=== PATIENT | male | born 1955 | race American Indian/Alaskan Native ===

== ENCOUNTER 2017-06-15 01:24 | Emergency (ER) | payer OTHER ==
[2017-06-15 01:45] VITALS: RESP 18; TEMP 98.7
--- NOTE | 2017-06-15 01:54 | ED PDOC ---
Arrival/HPI - General Historian: Patient - History of Present Illness Time/Duration: < week Context: Home <Kelly Savage - Last Filed: 06/15/17 15:43> <Hilario Gamez - Last Filed: 06/15/17 20:13> - General Chief Complaint: Cough, Cold, Congestion Time Seen by Provider: 06/15/17 01:40 - History of Present Illness Narrative History of Present Illness (Text): 06/15/17 01:50 This 61 yo male with pmh asthma, prostate Ca., presents to this ED c/o cough x 4 days. Patient also noted b/l legs "feeling cramping" for couple of days. Denies hemoptysis, sob, fever, abdominal pain, dizziness, or abnormal gait. (Kelly Savage) Past Medical History - Provider Review Nursing Documentation Reviewed: Yes - Cardiac Hx Cardiac Disorders: No - Pulmonary Hx Asthma: Yes - Neurological Hx Neurological Disorder: No - HEENT Hx HEENT Disorder: No - Renal Hx Renal Disorder: No - Endocrine/Metabolic Hx Endocrine Disorders: No - Hematological/Oncological Hx Cancer: Yes (PROSTATE) - Integumentary Hx Dermatological Disorder: No - Musculoskeletal/Rheumatological Hx Arthritis: Yes (BACK) - Gastrointestinal Hx Gastrointestinal Disorders: No - Genitourinary/Gynecological Hx Genitourinary Disorders: Yes Hx Prostate Cancer: Yes (CHEMO EVERY 21DAYS) Other/Comment: LAST CHEMOTHERAPY 01/07/17 - Psychiatric Hx Psychophysiologic Disorder: Yes Hx Substance Use: No (denies) - Anesthesia Hx Anesthesia: No <Kelly Savage P - Last Filed: 06/15/17 15:43> Family/Social History - Physician Review Nursing Documentation Reviewed: Yes Family/Social History: Other (noncontributory) Smoking Status: Light Smoker < 10 Cigarettes Daily Hx Alcohol Use: Yes (2 beers/day) Frequency of alcohol use: Daily Hx Substance Use: No (denies) Substance used: PERCOCET <Alice Savageim P - Last Filed: 06/15/17 15:43> Allergies/Home Meds <HusseinNahim P - Last Filed: 06/15/17 15:43> <Hilario Gamez - Last Filed: 06/15/17 20:13> Allergies/Adverse Reactions: Allergies aspirin Adverse Reaction (Verified 06/15/17 01:43) VOMITING lactose Adverse Reaction (Verified 06/15/17 01:43) VOMITING Home Medications: Home Meds Medication Instructions Recorded Confirmed Percocet 5/325 mg Tab 1 tab PO TID 01/12/17 06/09/17 predniSONE 1 tab PO DAILY 01/12/17 06/09/17 Albuterol HFA [Ventolin HFA 90 0.09 mg IH Q6 PRN 06/09/17 06/09/17 mcg/actuation (8 g)] Review of Systems - Review of Systems Constitutional: Normal. absent: Fatigue, Weight Change, Fevers Eyes: Normal ENT: Normal. absent: Sore Throat Respiratory: Cough, Sputum. absent: SOB, Wheezing Cardiovascular: Normal. absent: Chest Pain, Palpitations Gastrointestinal: Normal. absent: Abdominal Pain, Nausea, Vomiting Genitourinary Male: Normal Musculoskeletal: Other (leg cramping) Skin: Normal Neurological: Normal. absent: Headache, Dizziness, Focal Weakness, Gait Changes , Speech Changes, Facial Droop, Disequilibrium Endocrine: Normal Hemo/Lymphatic: Normal Psychiatric: Normal <Kelly Savage P - Last Filed: 06/15/17 15:43> Physical Exam Temperature: Afebrile Blood Pressure: Normal Pulse: Regular Respiratory Rate: Normal Appearance: Positive for: Well-Appearing, Non-Toxic, Comfortable Pain Distress: None Mental Status: Positive for: Alert and Oriented X 3 - Systems Exam Head: Present: Atraumatic, Normocephalic Pupils: Present: PERRL Extroacular Muscles: Present: EOMI Conjunctiva: Present: Normal Mouth: Present: Moist Mucous Membranes Neck: Present: Normal Range of Motion Respiratory/Chest: Present: Clear to Auscultation, Good Air Exchange. No: Respiratory Distress, Accessory Muscle Use Cardiovascular: Present: Regular Rate and Rhythm, Normal S1, S2. No: Murmurs Abdomen: Present: Normal Bowel Sounds. No: Tenderness, Distention, Peritoneal Signs Back: Present: Normal Inspection. No: CVA Tenderness Upper Extremity: Present: Normal Inspection, Normal ROM, Neurovascularly Intact. No: Cyanosis, Edema Lower Extremity: Present: Normal Inspection, NORMAL PULSES, Normal ROM, Neurovascularly Intact. No: Edema, CALF TENDERNESS Neurological: Present: GCS=15, CN II-XII Intact, Speech Normal, Motor Func Grossly Intact, Normal Sensory Function, Normal Cerebellar Funct, Gait Normal Skin: Present: Warm, Dry, Normal Color. No: Rashes Psychiatric: Present: Alert, Oriented x 3, Normal Insight, Normal Concentration <Kelly Savage - Last Filed: 06/15/17 15:43> Vital Signs Temp Pulse Resp BP Pulse Ox 06/15/17 03:15 88 18 128/76 96 06/15/17 01:43 98.7 F 92 H 18 130/77 93 L Medical Decision Making <Kelly Savage - Last Filed: 06/15/17 15:43> <Hilario Gamez - Last Filed: 06/15/17 20:13> ED Course and Treatment: 06/14/17 02:36 Case was sign out to Dr. Gamez, pending labs. (Kelly Savage) chronic leukocytosis , d/d from [facility] with ab , ambulating well in ed will dc 06/15/17 20:12 (Hilario Gamez) - Lab Interpretations Lab Results: 06/15/17 02:15 06/15/17 02:15 Lab Results 06/15/17 02:15: Sodium 135, Potassium 4.4, Chloride 96 L, Carbon Dioxide 26, Anion Gap 17, BUN 21, Creatinine 0.9, Est GFR ( Amer) > 60, Est GFR (Non- Af Amer) > 60, Random Glucose 117 H, Calcium 9.2, Total Bilirubin 0.5, AST 54, ALT 52, Alkaline Phosphatase 128 H, Total Protein 7.2, Albumin 4.4, Globulin 2.8 , Albumin/Globulin Ratio 1.5 06/15/17 02:15: WBC 30.8 H*, RBC 3.45 L, Hgb 11.0 L, Hct 34.0 L, MCV 98.6, MCH 31.9, MCHC 32.4, RDW 15.2 H, Plt Count 217, MPV 9.8, Gran % 88.7 H, Lymph % ( Auto) 6.4 L, [place] % (Auto) 4.4, Eos % (Auto) 0.0 L, Baso % (Auto) 0.5, Gran # 27.33 H, Lymph # 2.0, [place] # 1.4 H, Eos # 0.0, Baso # 0.15 - RAD Interpretation Narrative RAD Interpretations (Text): 06/15/17 02:20 Chest x-rays: NAD (Kelly Savage) Radiology Orders: 06/15/17 01:50 CHEST TWO VIEWS (PA/LAT) [RAD] Stat - Medication Orders Current Medication Orders: Discontinued Medications Azithromycin (Zithromax) 500 mg PO STAT STA PRN Reason: Protocol Stop: 06/15/17 02:22 Promethazine HCl/Codeine (Phenergan/Codeine Oral Syrup) 5 ml PO STAT STA Stop: 06/15/17 02:22 - PA / TANK WELDER / Resident Statement / has reviewed & agrees with the documentation as recorded. <Hilario Gamez - Last Filed: 06/15/17 20:13> Disposition/Present on Arrival - Present on Arrival Any Indicators Present on Arrival: No History of DVT/PE: No History of Uncontrolled Diabetes: No Urinary Catheter: No History of Decub. Ulcer: No History Surgical Site Infection Following: None - Disposition Have Diagnosis and Disposition been Completed?: Yes Disposition Time: 03:40 <Kelly Savage - Last Filed: 06/15/17 15:43> <Hilario Gamez - Last Filed: 06/15/17 20:13> - Disposition Diagnosis: Weakness generalized Disposition: HOME/ ROUTINE Condition: GOOD Discharge Instructions (ExitCare): Weakness (ED) Referrals: Crissy Calvo MD [Primary Care Provider] - Follow up with primary Forms: [employer] ([place])
[2017-06-15] MEDS ORDERED: Promethazine/Cod 6.25mg-10mg/5ml Syr UD PO STA (02:21)
[2017-06-15 02:41] LABS: BASO # 0.15 K/mm3 (0.0-2.0); BASO % 0.5 % (0.0-3.0); GRAN # 27.33 (1.4-6.5); GRAN % 88.7 % (50.0-68.0); LYMPH % 6.4 % (22.0-35.0); MEAN CELL VOLUME 98.6 fl (80.0-105.0); MEAN CORPUSCULAR HEMOGLOBIN 31.9 pg (25.0-35.0); MEAN CORPUSCULAR HGB CONC 32.4 g/dl (31.0-37.0); MEAN PLATELET VOLUME 9.8 fl (7.0-11.0); MONO # 1.4 (0.1-0.6); MONO % 4.4 % (1.0-6.0); RED CELL DISTRIBUTION WIDTH 15.2 % (11.5-14.5)
[2017-06-15 02:55] LABS: ALB/GLOB RATIO 1.5 (1.1-1.8); ALKALINE PHOSPHATASE 128 U/L (38-126); ALT/SGPT 52 U/L (7-56); AST/SGOT 54 U/L (17-59); BILIRUBIN,TOTAL 0.5 mg/dL (0.2-1.3); BLOOD UREA NITROGEN 21 mg/dL (7-21); CALCIUM 9.2 mg/dL (8.4-10.5); CARBON DIOXIDE 26 mmol/L (21-33); CHLORIDE 96 mmol/L (98-107); GFR AFRICAN-AMERICAN > 60; GLUCOSE,RANDOM 117 mg/dL (70-110); POTASSIUM 4.4 mmol/L (3.6-5.0); SODIUM 135 mmol/L (132-148); TOTAL PROTEIN 7.2 g/dL (5.8-8.3)
[2017-06-15 03:49] VITALS: BP 128/76; PULSE 88; O2SAT 96
[2017-06-15 04:08] LABS: WHITE BLOOD COUNT 30.8 10^3/ul (4.5-11.0)
--- NOTE | 2017-06-15 09:10 | RAD ---
HISTORY: cough COMPARISON: No prior. TECHNIQUE: Chest PA and lateral FINDINGS: LUNGS: Bilateral hyperaeration. Clear lungs PLEURA: No significant pleural effusion identified. No pneumothorax apparent. CARDIOVASCULAR: Normal. OSSEOUS STRUCTURES: No significant abnormalities. VISUALIZED UPPER ABDOMEN: Normal. OTHER FINDINGS: None. IMPRESSION: Bilateral hyperaeration - compatible with background COPD. Clear lungs
== END 2017-06-15 03:30 | disposition home or self-care (01) ==
LOC: ED 01:24
DX: R53.1 Weakness (principal); J45.909 Unspecified asthma, uncomplicated; F17.210 Nicotine dependence, cigarettes, uncomplicated

== ENCOUNTER 2018-10-27 09:29 | Outpatient (CLI) | payer OTHER | END 2018-10-27 09:30 | disposition home or self-care (01) | LOC: RAD 09:29 | DX: C61 Malignant neoplasm of prostate (principal) ==

== ENCOUNTER 2018-11-08 08:46 | Outpatient (CLI) | payer OTHER | END 2018-11-08 08:47 | disposition home or self-care (01) | LOC: RAD 08:46 ==

== ENCOUNTER 2018-11-10 10:36 | Outpatient (CLI) | payer OTHER | END 2018-11-10 10:37 | disposition home or self-care (01) | LOC: RAD 10:36 ==